=== PATIENT | female | born 1995 | race Caucasian/White ===

== ENCOUNTER 2019-05-13 10:55 | Emergency (ER) | payer BC ==
[2019-05-13] MEDS ORDERED: LORazepam 2 MG/ML SDV IVPUSH ONE ×2 (10:58→10:59)
--- NOTE | 2019-05-13 11:08 | EDM.PDOC ---
ED HPI GENERAL MEDICAL PROBLEM - General Chief Complaint: General Stated Complaint: CHEST PAIN Time Seen by Provider: 05/13/19 10:56 Source of Information: Reports: Patient History Limitations: Reports: No Limitations - History of Present Illness INITIAL COMMENTS - FREE TEXT/NARRATIVE: HISTORY AND PHYSICAL: History of present illness: Patient is a 23-year-old female who presents to the emergency room with complaints of shortness of breath, chest wall pain and paresthesia to her fingertips. She states that she woke up this morning with these symptoms and feels like they are not improving. Pain is localized under the right breast. This pain does not radiate although she states she has some tingling sensation to her right fingertips. She denies any injury, trauma or falls. She has a history of gastroparesis and has her medical marijuana card to help control the symptoms, smokes marijuana daily. Patient denies any fever, chills, headache, change in vision, syncope or near syncope. Denies any back pain, neck pain/stiffness or cough. Denies any abdominal pain, nausea, vomiting, diarrhea, constipation or dysuria. Denies any chance of . Patient has been eating and drinking appropriately. Review of systems: As per history of present illness and below otherwise all systems reviewed and negative. Past medical history: As per history of present illness and as reviewed below otherwise noncontributory. Surgical history: As per history of present illness and as reviewed below otherwise noncontributory. Social history: See social history for further information Family history: As per history of present illness and as reviewed below otherwise noncontributory. Physical exam: General: Well developed and extremely thin-appearing 23-year-old female. Alert and oriented. Anxious at nontoxic appearing HEENT: Atraumatic, normocephalic, pupils equal and reactive bilaterally, negative for conjunctival pallor or scleral icterus, mucous membranes moist, trachea midline. No drooling or trismus noted. No meningeal signs. No hot potato voice noted. Lungs: Clear to auscultation, breath sounds equal bilaterally, chest nontender. Nonreproducible Heart: S1S2, regular rate and rhythm without overt murmur Abdomen: Soft, nondistended, thin, nontender. Negative for masses. Negative for costovertebral tenderness. Skin: Intact, warm, dry. No lesions or rashes noted. Extremities: Atraumatic, moves all extremities per self without difficulty or deficits, negative for cords or calf pain. Neurovascular unremarkable. Neuro: Awake, alert, oriented. Cranial nerves II through XII unremarkable. Cerebellum unremarkable. Motor and sensory unremarkable throughout. Exam nonfocal. Notes: Initially when patient was brought back she was very anxious and tearful and grabbing at her chest, I was going to give her some Ativan. Staff states that she is now calm and cooperative with interview. Will hold off on the Ativan until he received lab work back. EKG shows NSR with rate of 80. Diagnostics are unremarkable. Vital signs are stable. Supportive care measures were reviewed and discussed. Voices understanding and is agreeable to plan of care. Denies any further questions or concerns at this time. Diagnostics: CBC, CMP, EKG, CXR, UA, Therapeutics: None Prescription: None Impression: Anxiety Chest wall pain Plan: 1. Lab work, EKG, Chest X-ray are normal. 2. Tylenol and/or Ibuprofen as needed for pain 3. Follow up with your primary care as we discussed. Return to the ED as needed as discussed. Definitive disposition and diagnosis as appropriate pending reevaluation and review of above. Left Chest Pain Score (Numeric/FACES): 10 - Related Data Allergies Allergy/AdvReac Type Severity Reaction Status Date / Time azithromycin Allergy Other Verified 05/13/19 10:58 cefixime [From Suprax] Allergy Other Verified 05/13/19 10:58 ciprofloxacin [From Cipro] Allergy Other Verified 05/13/19 10:58 codeine Allergy Other Verified 05/13/19 10:58 morphine Allergy Other Verified 05/13/19 10:58 sulfamethoxazole Allergy Other Verified 05/13/19 10:58 [From Bactrim] trimethoprim [From Bactrim] Allergy Other Verified 05/13/19 10:58 Home Meds: Home Meds Iron 10 mg DAILY 05/13/19 [History] Omeprazole 40 mg PO DAILY 05/13/19 [History] Past Medical History - Past Health History Medical/Surgical History: Denies Medical/Surgical History Respiratory History: Reports: Asthma Gastrointestinal History: Reports: Other (See Below) Other Gastrointestinal History: gastroporesis - Past Surgical History HEENT Surgical History: Reports: Adenoidectomy, Myringotomy w Tube(s), Tonsillectomy Female Surgical History: Reports: Tubal Ligation Social & Family History - Family History Family Medical History: Noncontributory - Tobacco Use Smoking Status *Q: Current Every Day Smoker Years of Tobacco use: 12 Packs/Tins Daily: 0.5 - Recreational Drug Use Recreational Drug Use: Yes Drug Use in Last 12 Months: Yes Recreational Drug Type: Reports: Marijuana/Hashish ED ROS GENERAL - Review of Systems Review Of Systems: ROS reveals no pertinent complaints other than HPI. ED EXAM, GENERAL - Physical Exam Exam: See Below (See dictation) Course - Vital Signs Last Recorded V/S: Last Vital Signs Temp 98.0 F 05/13/19 10:59 Pulse 68 05/13/19 10:59 Resp 22 H 05/13/19 10:59 BP 139/92 H 05/13/19 10:59 Pulse Ox 100 05/13/19 10:59 - Orders/Labs/Meds Orders: Active Orders 24 hr Category Date Time Status EKG Documentation Completion [RC] STAT Care 05/13/19 10:58 Active Chest 2V [CR] Stat Exams 05/13/19 10:58 Taken DRUG SCREEN, URINE [URCHEM] Stat Lab 05/13/19 11:37 Ordered Labs: Laboratory Tests 05/13/19 05/13/19 05/13/19 Range/Units 11:13 11:13 11:35 WBC 5.49 (4.0-11.0) K/uL RBC 5.32 (4.30-5.90) M/uL Hgb 13.9 (12.0-16.0) g/dL Hct 42.8 (36.0-46.0) % MCV 80.5 (80.0-98.0) fL MCH 26.1 L (27.0-32.0) pg MCHC 32.5 (31.0-37.0) g/dL RDW Std Deviation 44.8 (28.0-62.0) fl RDW Coeff of Adonay 15 (11.0-15.0) % Plt Count 244 (150-400) K/uL MPV 11.20 (7.40-12.00) fL Neut % (Auto) 52.1 (48.0-80.0) % Lymph % (Auto) 40.1 H (16.0-40.0) % [place] % (Auto) 5.6 (0.0-15.0) % Eos % (Auto) 1.5 (0.0-7.0) % Baso % (Auto) 0.7 (0.0-1.5) % Neut # (Auto) 2.9 (1.4-5.7) K/uL Lymph # (Auto) 2.2 (0.6-2.4) K/uL [place] # (Auto) 0.3 (0.0-0.8) K/uL Eos # (Auto) 0.1 (0.0-0.7) K/uL Baso # (Auto) 0.0 (0.0-0.1) K/uL Nucleated RBC % 0.0 /100WBC Nucleated RBCs # 0 K/uL Sodium 141 (136-145) mmol/L Potassium 4.1 (3.5-5.1) mmol/L Chloride 109 H (98-107) mmol/L Carbon Dioxide 24.0 (21.0-32.0) mmol/L BUN 10 (7.0-18.0) mg/dL Creatinine 0.8 (0.6-1.0) mg/dL Est Cr Clr Drug Dosing 55.29 mL/min Estimated GFR (MDRD) > 60.0 ml/min Glucose 89 (74-106) mg/dL Calcium 9.3 (8.5-10.1) mg/dL Total Bilirubin 0.4 (0.2-1.0) mg/dL AST 11 L (15-37) IU/L ALT 14 (14-63) IU/L Alkaline Phosphatase 89 (46-116) U/L Total Protein 6.8 (6.4-8.2) g/dL Albumin 3.7 (3.4-5.0) g/dL Globulin 3.1 (2.6-4.0) g/dL Albumin/Globulin Ratio 1.2 (0.9-1.6) Lipase 163 (73-393) U/L Urine Color YELLOW Urine Appearance CLEAR Urine pH 8.5 H (5.0-8.0) Ur Specific [place] 1.015 (1.001-1.035) Urine Protein NEGATIVE (NEGATIVE) mg/dL Urine Glucose (UA) NEGATIVE (NEGATIVE) mg/dL Urine Ketones NEGATIVE (NEGATIVE) mg/dL Urine Occult Blood NEGATIVE (NEGATIVE) Urine Nitrite NEGATIVE (NEGATIVE) Urine Bilirubin NEGATIVE (NEGATIVE) Urine Urobilinogen 0.2 (<2.0) EU/dL Ur Leukocyte Esterase NEGATIVE (NEGATIVE) Meds: Medications Discontinued Medications Generic Name Dose Route Start Last Admin Trade Name Flaca PRN Reason Stop Dose Admin Lorazepam 1 mg 05/13/19 10:58 05/13/19 11:06 Ativan IVPUSH 05/13/19 10:59 Not Given ONETIME ONE Lorazepam 0.5 mg 05/13/19 10:59 05/13/19 11:06 Ativan IVPUSH 05/13/19 11:00 Not Given ONETIME ONE Departure - Departure Time of Disposition: 11:51 Disposition: Home, Self-Care 01 Clinical Impression: Chest wall pain, Anxiety - Discharge Information Instructions: Chest Wall Pain, [id number] Referrals: PCP,None [Primary Care Provider] - Forms: ED Department Discharge Additional Instructions: The following information is given to patients seen in the emergency department who are being discharged to home. This information is to outline your options for follow-up care. We provide all patients seen in our emergency department with a follow-up referral. The need for follow-up, as well as the timing and circumstances, are variable depending upon the specifics of your emergency department visit. If you don't have a primary care physician on staff, we will provide you with a referral. We always advise you to contact your personal physician following an emergency department visit to inform them of the circumstance of the visit and for follow-up with them and/or the need for any referrals to a consulting specialist. The emergency department will also refer you to a specialist when appropriate. This referral assures that you have the opportunity for follow-up care with a specialist. All of these measure are taken in an effort to provide you with optimal care, which includes your follow-up. Under all circumstances we always encourage you to contact your private physician who remains a resource for coordinating your care. When calling for follow-up care, please make the office aware that this follow-up is from your recent emergency room visit. If for any reason you are refused follow-up, please contact the [facility] Emergency Department at and asked to speak to the emergency department charge nurse. [facility] [address] [place], [place] [id number] [facility] [address] [place] [id number] 1. Lab work, EKG, Chest X-ray are normal. 2. Tylenol and/or Ibuprofen as needed for pain 3. Follow up with your primary care as we discussed. Return to the ED as needed as discussed. - My Orders Last 24 Hours: My Active Orders 05/13/19 10:58 EKG Documentation Completion [RC] STAT Chest 2V [CR] Stat 05/13/19 11:37 DRUG SCREEN, URINE [URCHEM] Stat - Assessment/Plan Last 24 Hours: My Active Orders 05/13/19 10:58 EKG Documentation Completion [RC] STAT Chest 2V [CR] Stat 05/13/19 11:37 DRUG SCREEN, URINE [URCHEM] Stat
[2019-05-13 11:38] LABS: BLOOD UREA NITROGEN,BUN 10 mg/dL (7.0-18.0); CHLORIDE,CL 109 mmol/L (98-107); GLUCOSE RANDOM 89 mg/dL (74-106); LIPASE 163 U/L (73-393); POTASSIUM,K 4.1 mmol/L (3.5-5.1); SODIUM,NA 141 mmol/L (136-145)
--- NOTE | 2019-05-13 11:57 | CR ---
Indication: Chest pain. Technique: PA and lateral views the chest were obtained. Comparison: None Findings: The heart is normal in size. The lungs are clear. No infiltrate, pleural effusion, or pneumothorax is identified. Impression: No acute cardiopulmonary process. Dictated by Zee Toney MD @ May 13 2019 11:55AM Signed by Dr. Zee Toney @ May 13 2019 11:56AM
== END 2019-05-13 12:04 | disposition home or self-care (01) ==
LOC: MW.ED 10:55
DX: F41.9 Anxiety disorder, unspecified (principal); R07.89 Other chest pain; F17.210 Nicotine dependence, cigarettes, uncomplicated; Z88.1 Allergy status to other antibiotic agents; Z88.5 Allergy status to narcotic agent; Z88.2 Allergy status to sulfonamides
CPT/HCPCS: 36415; 71046; 71046-26; 80053; 80305-QW; 81003; 83690; 85025; 93005; 99282; 99285-25